=== PATIENT | male | born 1965 | race Caucasian/White ===

== ENCOUNTER 2017-10-03 20:54 | Emergency (ER) | payer OTHER ==
[~2017-10-03] VITALS: Ht 188 cm; Wt 78.5 kg
[~2017-10-03 20:54] MED LIST: Purinethol50 MG GT
[2017-10-03] MEDS ORDERED: BUDE.25 NEB (23:15)
[2017-10-03] MEDS ORDERED: Zovirax800 MG PO (23:24)
== END 2017-10-03 23:40 | disposition home or self-care (01) ==
LOC: ER 20:54
DX: B02.9 Zoster without complications (principal); Z88.8 Allergy status to other drugs, medicaments and biological substances; Z79.899 Other long term (current) drug therapy
CPT/HCPCS: 99283

== ENCOUNTER 2019-06-03 16:46 | Emergency (ER) | payer OTHER ==
[~2019-06-03] VITALS: Ht 188 cm; Wt 78.5 kg
[~2019-06-03 16:46] MED LIST changes: +BUDE.25 NEB; +Zovirax800 MG PO
[2019-06-03] MEDS ORDERED: BUDESONIDE EC3 MG PO (17:13)
[2019-06-03] MEDS ORDERED: FERSU300 PO (17:14)
== END 2019-06-03 17:26 | disposition other institution (70) ==
LOC: ER 16:46
DX: H53.9 Unspecified visual disturbance (principal); Z88.8 Allergy status to other drugs, medicaments and biological substances
CPT/HCPCS: 99283

== ENCOUNTER → 2023-10-11 | Outpatient (CLI) | payer OTHER ==
[~2023-10-11] MED LIST changes: +BUDESONIDE EC3 MG PO; +FERSU300 PO
== END | disposition home or self-care (01) ==
LOC: LAB 08:34 → LAB SHORT 08:34
DX: D04.4 Carcinoma in situ of skin of scalp and neck (principal)
CPT/HCPCS: 88305